=== PATIENT | female | born 1985 ===

== ENCOUNTER 2016-10-27 16:37 | Emergency (ER) | payer OTHER ==
[2016-10-27 16:45] VITALS: O2SAT 100
[2016-10-27] MEDS ORDERED: Sodium Chloride 0.9% 1,000 ML IV STA ×2 (17:14→19:35)
--- NOTE | 2016-10-27 17:15 | ED PDOC ---
HPI: SOB/CHF/COPD Time Seen by Provider: 10/27/16 16:54 Chief Complaint (Nursing): Shortness Of Breath Chief Complaint (Provider): SOB, chest pain History Per: Patient Additional Complaint(s): 31-year-old female presents to emergency department for evaluation of midsternal chest pain associated with shortness of breath and dyspnea on exertion that started yesterday. Patient also complains of associated dry cough. She denies fever or chills. His breath and chest pain became worse prompting ED visit. Patient's daughter has been sick with upper respiratory symptoms and has been using albuterol machine so patient did treatment at home earlier today but this did not help with shortness of breath or chest pain. Patient does have history of anxiety and is not sure if she is having a panic attack. She denies any recent travel. Patient states the chest pain is non- radiating. Of note, patient also states that her gallbladder was removed 2 years ago and when it was tested via pathology it was positive for cancer. Patient has been under surveillance for the past 2 years with an oncologist. She has never undergone any specific chemotherapy or radiation treatment but remains under close watch by her oncologist. Patient's last set of blood work was obtained 3 months ago and she states her liver functions were normal at that time. Patient does have mild associated upper abdominal pain since symptoms started last night with no associated nausea, vomiting, diarrhea or constipation. Past Medical History Reviewed: Historical Data, Nursing Documentation, Vital Signs Vital Signs: Last Vital Signs Temp 99.0 F 10/27/16 16:42 Pulse 132 H 10/27/16 16:42 Resp 22 10/27/16 16:53 BP 135/92 H 10/27/16 16:42 Pulse Ox 100 10/27/16 20:05 - Medical History PMH: Anxiety - Surgical History Surgical History: Cholecystectomy - Family History Family History: States: No Known Family Hx - Living Arrangements Living Arrangements: With Family - Social History Current smoker - smoking cessation education provided: No Alcohol: None Drugs: Denies - Allergies Allergies/Adverse Reactions: Allergies Allergy/AdvReac Type Severity Reaction Status Date / Time iodine Allergy SWELLING Verified 10/27/16 16:42 Curb-65 Severity Score - CURB-65 Severity Score Confusion: No Bun >19mg/dl (>7mmol/L): No Respiratory Rate greater than/equal to 30: No Systolic BP <90 or Diastolic BP less than/equal 60mmHg: No Age >64: No Curb-65 Score: 0 Percentage 30-day mortality: 0.6% Wells Criteria for PE - Wells Criteria for Pulmonary Embolism Clinical Signs and Symptoms of DVT: No P.E is #1 Diagnosis, or Equally Likely: No Heart Rate >100: No Immobilization at least 3 days;Surgery previous 4 weeks: No Previous, objectively diagnosed PE or DVT: No Hemoptysis: No Malignancy w/treatment within 6 months, or palliative: No Total Score: 0 Review of Systems ROS Statement: Except As Marked, All Systems Reviewed And Found Negative Constitutional: Negative for: Fever, Chills Cardiovascular: Positive for: Chest Pain. Negative for: Palpitations Respiratory: Positive for: Cough, Shortness of Breath, SOB with Exertion. Negative for: Hemoptysis, Pleuritic Pain, Sputum Gastrointestinal: Positive for: Nausea, Abdominal Pain. Negative for: Vomiting , Diarrhea Genitourinary Female: Negative for: Dysuria Neurological: Negative for: Headache, Dizziness Physical Exam - Reviewed Nursing Documentation Reviewed: Yes Vital Signs Reviewed: Yes - Physical Exam Appears: Positive for: Well, Non-toxic, No Acute Distress Head Exam: Positive for: ATRAUMATIC, NORMAL INSPECTION, NORMOCEPHALIC ENT: Positive for: Normal ENT Inspection Neck: Positive for: Normal, Painless ROM Cardiovascular/Chest: Positive for: Regular Rate, Rhythm Respiratory: Positive for: Decreased Breath Sounds, Respiratory Distress (mild) . Negative for: Crackles, Rales, Rhonchi Gastrointestinal/Abdominal: Positive for: Normal Exam, Soft, Tenderness (mild upper abdominal tenderness with no rebound or guarding) Back: Positive for: Normal Inspection. Negative for: L CVA Tenderness, R CVA Tenderness Extremity: Positive for: Normal ROM. Negative for: Pedal Edema Neurologic/Psych: Positive for: Alert, Oriented - Laboratory Results Result Diagrams: 10/27/16 18:11 10/27/16 18:11 Urine POC: Negative - ECG O2 Sat by Pulse Oximetry: 100 Pulse Ox Interpretation: Normal - Other Rad CXR X-Ray Interpretation: ? perihilar infiltrate vs increased markings, CT ordered Medical Decision Making Medical Decision Makin31 year old with chest pain, SOB, CACERES and associated upper abdominal pain Plan: CBC CMP Trop D-dimer CXR EKG IVF IV zofran and morphine PO xanax D-dimer elevated, LFT's elevated, patient is aware. Patient has known allergy to iodine but states that she can tolerate CT when she is premedicated with Benadryl and Solu-Medrol. Benadryl 50 mg IV and 125 mg IV of Solu-Medrol were administered. CT chest, abdomen and pelvis ordered with IV contrast. Disposition - Clinical Impression Clinical Impression: Dyspnea, Chest pain, Abdominal pain - Patient ED Disposition Is Patient to be Admitted: Transfer of Care - Disposition Disposition: Transfer of Care Disposition Time: 20:00 Condition: FAIR Patient Signed Over To: Simran Sylvester Handoff Comments: Case was signed out to BECKI Sylvester pending CT results and final disposition Results - Lab Results Lab Results: 10/27/16 18:11 WBC 8.9 RBC 5.02 Hgb 14.1 Hct 42.6 MCV 85.0 MCH 28.0 MCHC 33.0 RDW 13.5 Plt Count 272 MPV 8.8 Neut % (Auto) 79.8 H Lymph % (Auto) 8.5 L Erath % (Auto) 10.8 H Eos % (Auto) 0.6 Baso % (Auto) 0.3 Neut # 7.1 H Lymph # 0.8 L Erath # 1.0 H Eos # 0.1 Baso # 0.0 Neutrophils % (Manual) 81 H Lymphocytes % (Manual) 12 L Reactive Lymphs % 1 H Monocytes % (Manual) 6 Platelet Estimate Normal Giant Platelets Present Anisocytosis (manual) Slight Target Cells Marked D-Dimer, Quantitative 0.61 H Sodium 146 Potassium 3.7 Chloride 107 Carbon Dioxide 22 Anion Gap 21 H BUN 12 Creatinine 0.6 L Est GFR ( Amer) > 60 Est GFR (Non-Af Amer) > 60 Random Glucose 91 Calcium 10.1 Total Bilirubin 0.7 AST 266 H ALT 234 H Alkaline Phosphatase 114 Troponin I < 0.0120 Total Protein 8.4 H Albumin 4.7 Globulin 3.7 Albumin/Globulin Ratio 1.3
[2016-10-27 18:15] LABS: BASO % 0.3 % (0.0-2.0); EOS # 0.1 K/uL (0.0-0.7); EOS % 0.6 % (0.0-4.0); HEMATOCRIT 42.6 % (34.0-47.0); LYMPH # 0.8 K/uL (1.0-4.3); LYMPH % 8.5 % (20.0-40.0); MEAN PLATELET VOLUME 8.8 fl (7.2-11.7); MONO % 10.8 % (0.0-10.0); NEUT # 7.1 K/uL (1.8-7.0); NEUT % 79.8 % (50.0-75.0); PLATELET COUNT 272 K/uL (130-400); RED CELL DISTRIBUTION WIDTH 13.5 % (11.5-14.5); WHITE BLOOD COUNT 8.9 K/uL (4.8-10.8)
[2016-10-27 18:38] LABS: ALB/GLOB RATIO 1.3 (1.0-2.1); ALKALINE PHOSPHATASE 114 U/L (38-126); ALT/SGPT 234 U/L (9-52); AST/SGOT 266 U/L (14-36); BILIRUBIN,TOTAL 0.7 mg/dl (0.2-1.3); BLOOD UREA NITROGEN 12 mg/dl (7-17); CALCIUM 10.1 mg/dL (8.4-10.2); CARBON DIOXIDE 22 mmol/L (22-30); CHLORIDE 107 mmol/L (98-107); GFR AFRICAN-AMERICAN > 60; GLUCOSE,RANDOM 91 mg/dL (65-105); POTASSIUM 3.7 MMOL/L (3.6-5.0); SODIUM 146 mmol/l (132-148); TOTAL PROTEIN 8.4 G/DL (6.3-8.2)
[2016-10-27] MEDS ORDERED: DiphenhydrAMINE 50 mg/ml Inj IV STA (19:35)
[2016-10-27 19:36] LABS: NEUTROPHIL 81 % (42-75); REACTIVE LYMPHOCYTES 1 % (0-0); TOTAL CELLS COUNTED 100
[2016-10-27 19:37] LABS: GIANT PLATELETS PRESENT
[2016-10-27] MEDS ORDERED: DiphenhydrAMINE 50 mg/ml Inj ONE (19:55)
--- NOTE | 2016-10-27 21:19 | ED PDOC ---
- Laboratory Results Result Diagrams: 10/27/16 18:11 10/27/16 18:11 Urine POC: Negative - ECG O2 Sat by Pulse Oximetry: 100 Medical Decision Making Medical Decision Making: Case endorsed to food writer from BRANDON Meraz at 20:[address] scan HPI reviewed: HPI: SOB/CHF/COPD Time Seen by Provider: 10/27/16 16:54 Chief Complaint (Nursing): Shortness Of Breath Chief Complaint (Provider): SOB, chest pain History Per: Patient Additional Complaint(s): 31-year-old female presents to emergency department for evaluation of midsternal chest pain associated with shortness of breath and dyspnea on exertion that started yesterday. Patient also complains of associated dry cough. She denies fever or chills. His breath and chest pain became worse prompting ED visit. Patient's daughter has been sick with upper respiratory symptoms and has been using albuterol machine so patient did treatment at home earlier today but this did not help with shortness of breath or chest pain. Patient does have history of anxiety and is not sure if she is having a panic attack. She denies any recent travel. Patient states the chest pain is non- radiating. Of note, patient also states that her gallbladder was removed 2 years ago and when it was tested via pathology it was positive for cancer. Patient has been under surveillance for the past 2 years with an oncologist. She has never undergone any specific chemotherapy or radiation treatment but remains under close watch by her oncologist. Patient's last set of blood work was obtained 3 months ago and she states her liver functions were normal at that time. Patient does have mild associated upper abdominal pain since symptoms started last night with no associated nausea, vomiting, diarrhea or constipation. Plan: CBC CMP Trop D-dimer CXR EKG IVF IV zofran and morphine PO xanax D-dimer elevated, LFT's elevated, patient is aware. Patient has known allergy to iodine but states that she can tolerate CT when she is premedicated with Benadryl and Solu-Medrol. Benadryl 50 mg IV and 125 mg IV of Solu-Medrol were administered. CT chest, abdomen and pelvis ordered with IV contrast. CT Chest 1. Small dependent densities in the left lung likely related to foci of atelectasis. No consolidation or acute appearing pulmonary opacity. 2. Borderline enlarged right paratracheal lymph node measuring 1 cm, nonspecific. CT Abd/Pelvis 1. No acute findings. 2. 3 cm and 0.7 cm hypodensities in the spleen are indeterminant. The majority of incidentally discovered splenic lesions are benign in the absence of risk factors, however. Pt doing well on re-eval, no complaints. Repeat pulse: 75 BP: 125/80 Disposition - Clinical Impression Clinical Impression: Dyspnea, Chest pain, Abdominal pain - POA Present On Arrival: None - Disposition Disposition: Routine/Home Disposition Time: 17:10 Condition: FAIR Prescriptions: Methylprednisolone [Medrol Dose Pack (21 tabs)] 4 mg PO DAILY #21 mg Promethazine HCl/Codeine [Prometh-Codein 6.25-10 mg/5 ml] 5 ml PO HS #80 ml Instructions: Dyspnea (GEN)
[2016-10-27] MEDS ORDERED: Sodium Chloride 0.9% 50 ML IV ONE (21:26)
[2016-10-27] MEDS ORDERED: Iohexol 300 100 ML IJ ONE (21:26)
[2016-10-28 00:32] VITALS: BP 125/80; PULSE 75; RESP 16; TEMP 97.9
--- NOTE | 2016-10-28 08:21 | RAD ---
HISTORY: SOB COMPARISON: No prior. FINDINGS: LUNGS: No active pulmonary disease. PLEURA: No significant pleural effusion identified, no pneumothorax apparent. CARDIOVASCULAR: Normal. OSSEOUS STRUCTURES: No significant abnormalities. VISUALIZED UPPER ABDOMEN: Normal. OTHER FINDINGS: None. IMPRESSION: No active disease.
--- NOTE | 2016-10-28 09:12 | CT ---
PROCEDURE: CT Chest, Abdomen and Pelvis with intravenous contrast HISTORY: CP, SOB, CACERES, abd pain, elevated LFT's COMPARISON: None. TECHNIQUE: Computed tomography images of the chest, abdomen and pelvis were obtained. Coronal and sagittal reconstructions were performed. IV dose administered: 90 mL. Radiation dose: Total exam DLP = 932.4 mGy-cm. This CT was performed using one or more of the following dose reduction techniques: Automated exposure control, adjustment of the mA and/or KV according to patient size, and/or use of iterative reconstruction technique. FINDINGS: CT CHEST WITH CONTRAST: LUNGS: Clear. No nodule, mass or consolidation.Mild bibasilar atelectatic changes noted. MEDIASTINUM: Unremarkable. Normal caliber aorta and pulmonary arterial trunk. No aortic dissection. Normal size heart. LYMPH NODES: Scattered small mediastinal lymph nodes. 1 centimeter right peritracheal lymph node. PLEURA: Unremarkable. No pneumothorax. No pleural fluid. BONES: Unremarkable. OTHER FINDINGS: Nodular breast tissue on the left. Clinical correlation advised. Aberrant right subclavian artery. CT ABDOMEN AND PELVIS: LIVER: There is geographic hypoattenuation of the liver, consistent with hepatic steatosis. GALLBLADDER AND BILE DUCTS: Gallbladder not seen. Surgical clips in the gallbladder fossa. PANCREAS: Unremarkable. No gross lesion or ductal dilatation. SPLEEN: Mildly irregular hypodense structure in the spleen measuring approximately 3 x 2.5 x 3.2 centimeters. The internal attenuation of this structure is approximately 20 Hounsfield units. This is likely more complex than simple fluid. This could represent a splenic cyst. Underlying infection can't be excluded. Additional subcentimeter hyperdensity seen in the superior aspect. ADRENALS: Unremarkable. No mass. KIDNEYS AND URETERS: No hydronephrosis or solid mass. A subcentimeter hypodensity in the interpolar segment of the left kidney, too small to characterize accurately. VASCULATURE: Unremarkable. No aortic aneurysm. Multiple mildly dilated veins in the pelvis suggestive of pelvic venous congestion. BOWEL: Lack of oral contrast limits evaluation of bowel. Collapsed stomach. No bowel obstruction. APPENDIX: Normal appendix. PERITONEUM: Small amount of fluid in the pelvis, likely physiologic. LYMPH NODES: No bulky lymphadenopathy identified. BLADDER: Unremarkable. REPRODUCTIVE: IUD in place. Please note that evaluation of gynecologic organs is not optimal on CT imaging. BONES: No acute fracture. OTHER FINDINGS: On the right aspect of the perineum, there is a small fluid collection measuring 1 x 1.2 x 1.1 centimeters. Mild soft tissue induration is seen surrounding this collection. Underlying abscess cannot be entirely excluded. IMPRESSION: No acute chest pathology. Hypodensity within the spleen could represent a complex cyst. Underlying infection cannot be excluded. On the right aspect of the perineum there is a small fluid collection measuring 1 x 1.2 x 1.1 centimeters. Mild soft tissue induration is seen surrounding this fluid collection. Underlying abscess cannot be excluded. Clinical correlation is requested. Nodular breast tissue on the left. Clinical correlation is requested. Please note that this report is discordant with preliminary report.
--- NOTE | 2016-10-28 09:34 | CARD ---
APPROVED REPORT EKG Measurement Heart [id number] UT 120P [id number] <Conclusion> Sinus tachycardia Prolonged QT Abnormal ECG
== END 2016-10-28 00:35 | disposition home or self-care (01) ==
LOC: H.ER 16:37
DX: R07.9 Chest pain, unspecified (principal); R10.9 Unspecified abdominal pain; R06.00 Dyspnea, unspecified; R06.02 Shortness of breath; R05 Cough; R94.5 Abnormal results of liver function studies

== ENCOUNTER 2017-10-08 19:02 | Emergency (ER) | payer OTHER ==
[2017-10-08 19:11] VITALS: BP 137/80; PULSE 76; RESP 17; TEMP 98; O2SAT 100
[2017-10-08] MEDS ORDERED: Rabies Immune Globulin 150 INTLU/ML VIAL IM STA (19:23)
[2017-10-08] MEDS ORDERED: Tdap Vaccine 0.5 ml Vial (10-64 yrs) IM ONE ×2 (19:23→20:20)
[2017-10-08] MEDS ORDERED: RABIES VACCINE 2.5 Units PDR IM ONE ×3 (19:23→19:45)
[2017-10-08] MEDS ORDERED: Amoxicillin-Clav 875-125 mg Tab PO STA (19:23)
--- NOTE | 2017-10-08 19:28 | ED PDOC ---
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 Patient reports she was bit by a stray cat that lives outside of her apartment. Her tetanus is not up to date. Patient states that animal control has tried to capture the cat in the past but they have been unsuccessful. PMD: Derek Young - Animal Bite Description Of The Attack: Unprovoked Attack Description Of The Animal: Stray Animal Appears: Unknown Animal's Immunization Status: Unknown Past Medical History Reviewed: Historical Data, Nursing Documentation, Vital Signs Vital Signs: Last Vital Signs Temp 98.0 F 10/08/17 19:08 Pulse 76 10/08/17 19:08 Resp 17 10/08/17 19:08 BP 137/80 10/08/17 19:08 Pulse Ox 100 10/08/17 20:16 - Medical History PMH: Anxiety, Asthma - Surgical History Surgical History: Cholecystectomy - Family History Family History: States: No Known Family Hx - Living Arrangements Living Arrangements: With Family - Social History Current smoker - smoking cessation education provided: No Alcohol: Social Drugs: Denies - Immunization History Hx Tetanus Toxoid Vaccination: No - Home Medications Home Medications: Ambulatory Orders Medication Instructions Recorded Methylprednisolone [Medrol Dose 4 mg PO DAILY #21 mg 10/28/16 Pack (21 tabs)] Promethazine HCl/Codeine 5 ml PO HS #80 ml 10/28/16 [Prometh-Codein 6.25-10 mg/5 ml] Amoxicillin/Clavulanate [Augmentin 1 tab PO BID #14 tab 10/08/17 875 MG-125 MG] - Allergies Allergies/Adverse Reactions: Allergies Allergy/AdvReac Type Severity Reaction Status Date / Time iodine Allergy SWELLING Verified 10/27/16 16:42 Review of Systems ROS Statement: Except As Marked, All Systems Reviewed And Found Negative Musculoskeletal: Positive for: Leg Pain (cat bite to right calf) Physical Exam - Reviewed Nursing Documentation Reviewed: Yes Vital Signs Reviewed: Yes - Physical Exam Appears: Positive for: Well, Non-toxic, No Acute Distress Head Exam: Positive for: ATRAUMATIC, NORMAL INSPECTION, NORMOCEPHALIC Skin: Positive for: Normal Color. Negative for: Rash Eye Exam: Positive for: Normal appearance Extremity: Positive for: Other (superficial laceration to right calf, no active bleeding with full rom of right lower extremities). Negative for: Tenderness, Deformity, Swelling Neurologic/Psych: Positive for: Alert, Oriented, Gait (steady) - Laboratory Results Urine POC: Negative - ECG O2 Sat by Pulse Oximetry: 100 (RA) Pulse Ox Interpretation: Normal Medical Decision Making Medical Decision Making: Initial Impression: 32 y/o female with cat bite Initial Plan: --Tetanus booster --Rabies vaccine --Rabies immune globulin --Initial does augmentin Patient tolerated all injections well in ED. Patient was given wound care instructions and rx augmentin. Advised NSAID's prn pain. Schedule for rabies vaccine provided to patient. She was instructed to return to ED as per vaccine schedule. ~ Scribe Attestation: Documented by Xu Burgos, acting as a scribe for Simran Meraz PA-C. Provider Scribe Attestation: All medical record entries made by the Scribe were at my direction and personally dictated by me. I have reviewed the chart and agree that the record accurately reflects my personal performance of the history, physical exam, medical decision making, and the department course for this patient. I have also personally directed, reviewed, and agree with the discharge instructions and disposition. Disposition - Clinical Impression Clinical Impression: Animal bite wound, Requires a booster tetanus, Need for rabies vaccination - Patient ED Disposition Is Patient to be Admitted: No Counseled Patient/Family Regarding: Diagnosis, Need For Followup, Rx Given - Disposition Referrals: [facility] [Outside] Disposition: Routine/Home Disposition Time: 20:10 Condition: STABLE Additional Instructions: Wash wound daily with soap and water and apply neosporin once per day. Over the counter advil for pain as needed. Take antibiotics as directed to completion. Return to ED according to vaccine schedule. Prescriptions: Amoxicillin/Clavulanate [Augmentin 875 MG-125 MG] 1 tab PO BID #14 tab Instructions: Animal Bites (DC), Diphtheria and Tetanus Toxoids, and Acellular Pertussis Vaccine, Rabies Immune Globulin (Human), Rabies Vaccine Forms: [employer] ([place]ian)
[2017-10-08] MEDS ORDERED: Amoxicillin-Clav 875-125 mg Tab PO ONE (20:19)
== END 2017-10-08 20:58 | disposition home or self-care (01) ==
LOC: H.ER 19:02
DX: S81.831A Puncture wound without foreign body, right lower leg, initial encounter (principal); W55.01XA Bitten by cat, initial encounter; Y92.89 Other specified places as the place of occurrence of the external cause; Z20.3 Contact with and (suspected) exposure to rabies; F41.9 Anxiety disorder, unspecified

== ENCOUNTER 2017-10-11 21:53 | Emergency (ER) | payer OTHER ==
[2017-10-11 22:16] VITALS: BP 129/72; PULSE 75; RESP 14; TEMP 98.7; O2SAT 99
[2017-10-11] MEDS ORDERED: RABIES VACCINE 2.5 Units PDR IM ONE (22:27)
--- NOTE | 2017-10-11 22:46 | ED PDOC ---
HPI: General Adult Time Seen by Provider: 10/11/17 22:22 Chief Complaint (Nursing): Rabies Vaccine Series History Per: Patient History/Exam Limitations: no limitations Additional Complaint(s): 32 yo F presents for day 3 rabies vaccination. Reports that her cat bite to the R calf is healing well, has no other complaints. Denies pain, redness or swelling. Past Medical History Vital Signs: Last Vital Signs Temp 98.7 F 10/11/17 22:14 Pulse 75 10/11/17 22:14 Resp 14 10/11/17 22:14 BP 129/72 10/11/17 22:14 Pulse Ox 99 10/11/17 22:14 - Medical History PMH: Anxiety, Asthma, Gall Bladder Disease - Surgical History Surgical History: Cholecystectomy - Family History Family History: States: Unknown Family Hx - Immunization History Hx Tetanus Toxoid Vaccination: No - Home Medications Home Medications: Ambulatory Orders Medication Instructions Recorded Methylprednisolone [Medrol Dose 4 mg PO DAILY #21 mg 10/28/16 Pack (21 tabs)] Promethazine HCl/Codeine 5 ml PO HS #80 ml 10/28/16 [Prometh-Codein 6.25-10 mg/5 ml] Amoxicillin/Clavulanate [Augmentin 1 tab PO BID #14 tab 10/08/17 875 MG-125 MG] - Allergies Allergies/Adverse Reactions: Allergies Allergy/AdvReac Type Severity Reaction Status Date / Time iodine Allergy SWELLING Verified 10/11/17 22:16 Review of Systems Constitutional: Negative for: Fever, Weakness, Malaise Musculoskeletal: Negative for: Back Pain, Leg Pain, Foot Pain Skin: Positive for: Bruising (from cat bite). Negative for: Rash, Lesions Physical Exam - Physical Exam Appears: Positive for: Well, Non-toxic, No Acute Distress Skin: Positive for: Normal Color, Warm, Dry. Negative for: Rash Extremity: Positive for: Normal ROM, Capillary Refill (normal), Other (healing cat bite to the posterior proximal R calf). Negative for: Tenderness, Calf Tenderness, Deformity, Swelling - ECG O2 Sat by Pulse Oximetry: 99 Medical Decision Making Medical Decision Making: Rabies vaccine IM given. Patient advised to return to the ER for day 7 and 14 rabies vaccination. Disposition - Clinical Impression Clinical Impression: Need for rabies vaccination - Patient ED Disposition Is Patient to be Admitted: No - Disposition Disposition: Routine/Home Disposition Time: 22:45 Condition: STABLE Additional Instructions: Return to the ER for day 7 and day 14 rabies vaccination. Continue current antibiotics and continue to keep would clean and dry. 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
== END 2017-10-11 23:35 | disposition home or self-care (01) ==
LOC: H.ER 21:53
DX: Z29.14 Encounter for prophylactic rabies immune globulin (principal); F41.9 Anxiety disorder, unspecified; J45.909 Unspecified asthma, uncomplicated

== ENCOUNTER 2017-10-18 10:49 | Emergency (ER) | payer OTHER ==
[2017-10-18 11:00] VITALS: BMI 29.7
[2017-10-18 11:02] VITALS: BP 119/76; PULSE 83; RESP 16; TEMP 98.2; O2SAT 99
[2017-10-18] MEDS ORDERED: RABIES VACCINE 2.5 Units PDR IM ONE (11:29)
--- NOTE | 2017-10-18 11:48 | ED PDOC ---
HPI: General Adult Time Seen by Provider: 10/18/17 11:30 Chief Complaint (Nursing): Rabies Vaccine Series Chief Complaint (Provider): rabies vaccine History Per: Patient (32 y/o female here for rabies vaccine # 3. Patient is 3 days late for dose. States initial Rabies #1 injection caused erythema/ swelling on left deltoid that resolved by itself on augmentin. No similar trouble with rabies vaccine #2.) Past Medical History Reviewed: Historical Data, Nursing Documentation, Vital Signs Vital Signs: Last Vital Signs Temp 98.2 F 10/18/17 11:00 Pulse 83 10/18/17 11:00 Resp 16 10/18/17 11:00 BP 119/76 10/18/17 11:00 Pulse Ox 99 10/18/17 11:00 - Medical History PMH: Anxiety, Asthma, Gall Bladder Disease (gall bladder ca) - Surgical History Surgical History: Cholecystectomy - Family History Family History: States: Unknown Family Hx - Immunization History Hx Tetanus Toxoid Vaccination: No - Home Medications Home Medications: Ambulatory Orders Medication Instructions Recorded Methylprednisolone [Medrol Dose 4 mg PO DAILY #21 mg 10/28/16 Pack (21 tabs)] Promethazine HCl/Codeine 5 ml PO HS #80 ml 10/28/16 [Prometh-Codein 6.25-10 mg/5 ml] Amoxicillin/Clavulanate [Augmentin 1 tab PO BID #14 tab 10/08/17 875 MG-125 MG] - Allergies Allergies/Adverse Reactions: Allergies Allergy/AdvReac Type Severity Reaction Status Date / Time iodine Allergy SWELLING Verified 10/11/17 22:16 Review of Systems ROS Statement: Except As Marked, All Systems Reviewed And Found Negative Physical Exam - Reviewed Nursing Documentation Reviewed: Yes Vital Signs Reviewed: Yes - Physical Exam Appears: Positive for: Well, Non-toxic, No Acute Distress Head Exam: Positive for: ATRAUMATIC, NORMAL INSPECTION, NORMOCEPHALIC Skin: Positive for: Normal Color, Warm, DRY Eye Exam: Positive for: EOMI, Normal appearance, PERRL ENT: Positive for: Normal ENT Inspection Neck: Positive for: Normal, Painless ROM Cardiovascular/Chest: Positive for: Regular Rate, Rhythm Respiratory: Positive for: CNT, Normal Breath Sounds Gastrointestinal/Abdominal: Positive for: Normal Exam, Bowel Sounds, Soft Back: Positive for: Normal Inspection Extremity: Positive for: Normal ROM Neurologic/Psych: Positive for: Alert, Oriented - ECG O2 Sat by Pulse Oximetry: 99 - Progress ED Course And Treament: Rabies Vaccine 2.5 Unit IM x 1 dose Disposition - Clinical Impression Clinical Impression: Need for rabies vaccination - Patient ED Disposition Is Patient to be Admitted: No - Disposition Disposition: Routine/Home Disposition Time: 11:48 Condition: FAIR Additional Instructions: return in 1 week for last vaccine update. Instructions: Rabies Vaccine
== END 2017-10-18 12:35 | disposition home or self-care (01) ==
LOC: H.ER 10:49
DX: Z29.14 Encounter for prophylactic rabies immune globulin (principal); Z85.09 Personal history of malignant neoplasm of other digestive organs; F41.9 Anxiety disorder, unspecified

== ENCOUNTER 2018-12-18 23:02 | Emergency (ER) | payer BC ==
[2018-12-18 23:02] VITALS: BMI 29.7
[2018-12-18 23:28] VITALS: RESP 18; O2SAT 99
--- NOTE | 2018-12-19 00:10 | ED PDOC ---
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 Patient states last Saturday she injured her right foot at work and since than has had pain and swelling from inner aspect of right foot/heel up to inside of right calf. Patient states pain worsened this week so she saw a [employer] and was told she might have a ligament tear and put her in an boot and was told if she developed calf pain to go the ED. Patient states today she developed pain in back of right calf and behind right knee, and then noticed some mild "tightness" in her chest. Denies fever, cough, shortness of breath, palpitations, abdominal pain, numbness/weakness lower extremities. Past Medical History Reviewed: Historical Data, Nursing Documentation, Vital Signs Vital Signs: Last Vital Signs Temp 98.3 F 12/18/18 23:24 Pulse 94 H 12/18/18 23:24 Resp 18 12/18/18 23:24 BP 139/76 12/18/18 23:24 Pulse Ox 99 12/18/18 23:24 Primary Care Provider: Osvaldo Sterling - Medical History PMH: Anxiety, Asthma, Gall Bladder Disease (gall bladder ca) - Surgical History Surgical History: Cholecystectomy (Gallbladder CA stage 1 2014) - Family History Family History: States: Unknown Family Hx - Immunization History Hx Tetanus Toxoid Vaccination: No - Home Medications Home Medications: Ambulatory Orders Medication Instructions Recorded Methylprednisolone [Medrol Dose 4 mg PO DAILY #21 mg 10/28/16 Pack (21 tabs)] Promethazine HCl/Codeine 5 ml PO HS #80 ml 10/28/16 [Prometh-Codein 6.25-10 mg/5 ml] Amoxicillin/Clavulanate [Augmentin 1 tab PO BID #14 tab 10/08/17 875 MG-125 MG] Naproxen [Naprosyn] 500 mg PO Q12 PRN #20 tablet 12/19/18 - Allergies Allergies/Adverse Reactions: Allergies Allergy/AdvReac Type Severity Reaction Status Date / Time iodine Allergy SWELLING Verified 10/11/17 22:16 Wells Criteria for PE - Wells Criteria for Pulmonary Embolism Clinical Signs and Symptoms of DVT: No P.E is #1 Diagnosis, or Equally Likely: No Heart Rate >100: No Immobilization at least 3 days;Surgery previous 4 weeks: No Previous, objectively diagnosed PE or DVT: No Hemoptysis: No Malignancy w/treatment within 6 months, or palliative: No Total Score: 0 Review of Systems ROS Statement: Except As Marked, All Systems Reviewed And Found Negative Musculoskeletal: Positive for: Leg Pain Physical Exam - Reviewed Nursing Documentation Reviewed: Yes Vital Signs Reviewed: Yes - Physical Exam Appears: Positive for: Well, Non-toxic, No Acute Distress Head Exam: Positive for: ATRAUMATIC, NORMAL INSPECTION, NORMOCEPHALIC Skin: Positive for: Normal Color Eye Exam: Positive for: Normal appearance ENT: Positive for: Normal ENT Inspection Cardiovascular/Chest: Positive for: Regular Rate, Rhythm Respiratory: Positive for: Normal Breath Sounds Pulses-Dorsalis Pedis (L): 2+ Pulses-Dorsalis Pedis (R): 2+ Pulses-Post. Tibialis (L): 2+ Pulses-Post. Tibialis (R): 2+ Extremity: Positive for: Normal ROM, Tenderness (medial aspect right foot extending medial lower leg), Calf Tenderness (+Soo's, right) Neurological/Psych: Positive for: Awake, Alert, Oriented (x3) - ECG ECG: Positive for: Viewed By Me (reviewed by ED attending) ECG Rhythm: Positive for: Sinus Rhythm O2 Sat by Pulse Oximetry: 99 - Progress ED Course And Treament: -upreg -venous duplex RLE Well's score low probability PERC negative Right lower extremity venous duplex. Indication: Right calf pain, swelling. Findings: Real-time ultrasound images of the deep venous system with Doppler evaluation. Normal compression, spontaneity and augmentation. Normal color Doppler. No intraluminal thrombus is seen. IMPRESSION: No evidence of deep venous thrombosis Patient resting comfortably on re-eval. Vitals stable Patient educated on findings, discharged with rx Naproxen Advised follow up with podiatry as scheduled Return precautions given Disposition - Clinical Impression Clinical Impression: Pain of right calf - Patient ED Disposition Is Patient to be Admitted: No Counseled Patient/Family Regarding: Studies Performed, Diagnosis, Need For Followup, Rx Given - Disposition Referrals: Osvaldo Sterling DPM [[facility]] - Disposition: Routine/Home Disposition Time: 02:40 Condition: IMPROVED Prescriptions: Naproxen [Naprosyn] 500 mg PO Q12 PRN #20 tablet PRN Reason: Pain, Moderate (4-7) Instructions: Lower Extremity Muscle Strain Forms: [facility] ([place])
[2018-12-19 02:34] VITALS: BP 116/65; PULSE 76; TEMP 98.2
--- NOTE | 2018-12-19 12:18 | US ---
Date of service: 12/19/2018 PROCEDURE: Right lower extremity venous duplex Doppler. HISTORY: pain/swelling right LE COMPARISON: None available. TECHNIQUE: Common femoral, superficial femoral, popliteal and posterior tibial veins were evaluated. Flow was assessed with color Doppler, compressibility, assessment of phasic flow and augmentation response. FINDINGS: COMMON FEMORAL VEIN: Unremarkable. SUPERFICIAL FEMORAL VEIN: Unremarkable. POPLITEAL VEIN: Unremarkable. POSTERIOR TIBIAL VEIN: Unremarkable. OTHER FINDINGS: None. IMPRESSION: No evidence of deep venous thrombosis in the right lower extremity.
== END 2018-12-19 03:19 | disposition home or self-care (01) ==
LOC: H.ER 23:02
DX: M79.661 Pain in right lower leg (principal); J45.909 Unspecified asthma, uncomplicated